=== PATIENT | male | born 1995 | race Caucasian/White ===

== ENCOUNTER 2020-08-04 09:35 | Emergency (ER) | payer MEDICAID, SELFPAY | END 2020-08-04 11:17 | disposition left against medical advice (07) | PROVIDERS: Emergency Provider Emergency Medicine | DX: L72.9 Follicular cyst of the skin and subcutaneous tissue, unspecified (principal) ==

== ENCOUNTER 2021-01-19 23:37 | Emergency (ER) | payer MEDICAID, SELFPAY ==
[2021-01-19 23:47] VITALS: BP 145/84; PULSE 69; RESP 16; TEMP 36.9; O2SAT 97; BMI 28.3
--- NOTE | 2021-01-20 01:30 | ED_ITS ---
HPI - General Adult General Chief complaint: General Medical Stated complaint: uro genital male Time Seen by Provider: 01/20/21 01:29 Source: patient Mode of arrival: ambulatory Limitations: no limitations History of Present Illness HPI narrative: Patient is a 25-year-old male with no significant past medical history use complaining of exposure to sexually transmitted infection. Patient states he has had the same girlfriend for 5 years and is sexually active with her on a regular basis but for some unknown reason, she tested positive for some infection, he is not sure what the name of the infection is. He states he has no symptoms, denies dysuria, blood in the urine, denies abnormal discharge denies any pain in the penis or testicles. Related Data Previous Rx's Medication Instructions Recorded doxycycline hyclate 100 mg tablet 100 mg PO BID 7 Days #14 tab 01/20/21 Allergies Allergy/AdvReac Type Severity Reaction Status Date / Time No Known Allergies Allergy Unverified 02/12/20 18:08 Review of Systems Review of Systems: Yes all other systems are reviewed and are negative [facility] Social History Social History Advance Directives: No Advance Directives Information Provided: Yes Physical Exam Vital Signs: Vital Signs: Last Vital Signs Temp 98.5 F 01/19/21 23:47 Pulse 69 01/19/21 23:47 Resp 16 01/19/21 23:47 BP 145/84 H 01/19/21 23:47 Pulse Ox 97 01/19/21 23:47 Body Mass Index 28.3 Const: General: cooperative, healthy appearing, comfortable, no acute distress and well developed Orientation/consciousness: patient oriented x3 Limitations: no limitations HENMT: Head: Yes normal to inspection Eyes: General: appearance normal, both eyes and all related structures Neck: Neck: Yes normal visual inspection and Yes full ROM Resp: Effort & Inspection: normal respiratory effort and able to speak in complete sentences GI: Inspection: Yes normal to inspection Palpation (GI): Soft to palpation and nontender Skin: General skin exam: no rashes or lesions noted Neuro: General: patient oriented x3 Extrem: General: Yes normal to inspection Course Course Course Narrative: 25-year-old male with possible exposure to either gonorrhea or chlamydia, patient unsure of the name. Will test and treat for both. Reviewed with patient to get retested in 30 days to be sure he has cleared the disease, not abstain from sexual intercourse until he is sure he has cleared the disease, also advised we will call him if he tests positive. Patient understands and agrees with plan. Discharge Plan Discharge Clinical Impression: Possible exposure to STD Patient Disposition: Home, Self-Care Instructions: Postexposure Prophylaxis (ED) Additional Instructions: As discussed, you have been treated for chlamydia and gonorrhea with the shot of ceftriaxone and the prescription I have sent to your pharmacy for doxycycline. Please be sure to take the doxycycline in full, as directed. Please do not go out in the sun while taking this medication, you also should take this medication with food so it is easier on her stomach. We will call you if either of your sexually transmitted infection tests are positive. Please abstain from any sexual contact for 30 days if you do test positive. He also will need to have a repeat test in 30 days to be sure you have cleared the disease. You should advise your sexual partner to get treated for whichever disease you test positive for and she should also is abstain from sexual intercourse for 30 days and be retested in 30 days. Once you have both been treated and cleared the disease, then you may resume sexual activity. Prescriptions: New doxycycline hyclate 100 mg tablet 100 mg PO BID 7 Days Qty: 14 RF: 0
[2021-01-20] MEDS: cefTRIAXone sodium 500 MG, Lidocaine HCl 1 % MPF 1 ML IM (02:15)
[2021-01-20 05:45] LABS: CT PCR NOT DETECTED (Not Detect.); NG PCR NOT DETECTED (Not Detect.)
== END 2021-01-20 02:24 | disposition home or self-care (01) ==
PROVIDERS: Physician Assistant; Emergency Provider Student in an Organized Health Care Education/Training Program
DX: Z20.2 Contact with and (suspected) exposure to infections with a predominantly sexual mode of transmission (principal)
CPT/HCPCS: 87491; 87591; 96372; 99284; J0696

== ENCOUNTER 2022-12-17 02:38 | Emergency (ER) | payer MEDICAID, SELFPAY ==
[2022-12-17 02:39] VITALS: BP 118/76; PULSE 70; RESP 20; TEMP 36.9; O2SAT 99; BMI 26.2
[2022-12-17 02:54] VITALS: BP 113/77; PULSE 70; RESP 12; TEMP 37.1; O2SAT 98
--- NOTE | 2022-12-17 03:03 | PC.NURSE ---
Pt aox4 reporting bilateral eye burning after smoking marijuana. Bilateral sclera redness noted. Light sensitivity, lights dimmed. Reports discomfort to keep eyes open. Declines rinsing of the eyes as pt reports increased burning when rinsing the face. VSS. Pending physician eval.
--- NOTE | 2022-12-17 03:48 | ED.EYEPROB ---
HPI - Eye Problem General Chief complaint: Eye Problems Stated complaint: Eyes burning Time Seen by Provider: 12/17/22 03:38 Source: patient Mode of arrival: ambulatory Limitations: no limitations History of Present Illness HPI Narrative: Patient was smoking weed in the car with his friend and both of them noticed suddenly redness in both eyes with watering unable to open the eyes no direct injury no use of rema dust Related Data Previous Rx's Medication Instructions Recorded doxycycline hyclate 100 mg tablet 100 mg PO BID 7 days #14 tabs 01/20/21 diphenhydramine HCl 25 mg capsule 25 mg PO TID PRN allergy symptoms 12/17/22 (Benadryl) #20 caps ketotifen fumarate 0.025 % (0.035 1 drp ophthalmic (eye) Q8H PRN 12/17/22 %) eye drops (Alaway) allergy symptoms #5 mL Allergies Allergy/AdvReac Type Severity Reaction Status Date / Time No Known Allergies Allergy Unverified 02/12/20 18:08 Review of Systems Review of Systems: Yes all other systems are reviewed and are negative [facility] Social History Social History Smoked in Last 30 Days: Yes Use of substances other than those prescribed or required for medical reasons: No Substance Use Type: Marijuana Advance Directives: No Advance Directives Information Provided: Yes Physical Exam Vital Signs: Vital Signs: Last Vital Signs Temp 98.8 F 12/17/22 02:54 Pulse 70 12/17/22 02:54 Resp 12 12/17/22 02:54 BP 113/77 12/17/22 02:54 Pulse Ox 98 12/17/22 02:54 O2 Del Method Room Air 12/17/22 02:54 BMI result Body Mass Index 26.2 Eyes: Visual Shepherd: normal visual shepherd by confrontation Periorbital: periorbital findings abnormal (Swollen bilateral upper eyelid) bilateral Conjunctivae: conjunctival abnormal (Inflamed) bilateral Sclerae: scleral abnormal (Inflamed) bilateral Corneas: corneas normal Pupils: Equal, round and reactive pupils present EOM: EOMs intact bilaterally Direct Ophthalmoscopy: normal light reflex and anterior chamber normal Neuro: Cranial nerves: Yes Equal, round and reactive pupils present Medications Administered Discontinued Medications Generic Name Dose Route Start Last Admin Trade Name Freq PRN Reason Stop Dose Admin Diphenhydramine HCl 50 mg 12/17/22 03:45 12/17/22 03:56 Diphenhydramine Hcl 25 Mg Capsule PO 12/17/22 03:46 50 mg ONCE ONE Administration Medical Decision Making Medical Decision Making [facility] Narrative: Patient with acute allergic conjunctivitis with watering eye and redness of his conjunctiva improved after tetracaine discharge patient advised to take Benadryl and antiallergic eye drops Discharge Plan Discharge Clinical Impression: Allergic conjunctivitis Patient Disposition: Home, Self-Care Instructions: Conjunctivitis (ED) Additional Instructions: You have allergic Chemical conjunctivitis Eyedrops as advised Avoid using fumes Prescriptions: New ketotifen fumarate [[place]away] 0.025 % (0.035 %) drops 1 drp ophthalmic (eye) Q8H PRN (Reason: allergy symptoms) Qty: 5 0RF Rx Instructions: do not exceed 2 doses in a 24 hour period diphenhydramine HCl [Benadryl] 25 mg capsule 25 mg PO TID PRN (Reason: allergy symptoms) Qty: 20 0RF No Action doxycycline hyclate 100 mg tablet 100 mg PO BID 7 Days Qty: 14 0RF
[2022-12-17] MEDS: diphenhydrAMINE HCL 25 MG CAPSULE 50 MG PO (03:56)
== END 2022-12-17 04:10 | disposition home or self-care (01) ==
PROVIDERS: Emergency Provider Internal Medicine
DX: H10.13 Acute atopic conjunctivitis, bilateral (principal); F12.90 Cannabis use, unspecified, uncomplicated
CPT/HCPCS: 99283; 99284